=== PATIENT | male | born 1965 | race Caucasian/White ===

== ENCOUNTER 2017-07-26 05:56 | Outpatient (CLI) | payer MEDICARE, MEDICAID ==
[~2017-07-26] VITALS: Ht 193 cm; Wt 68.0 kg
[~2017-07-26 05:56] MED LIST: ALBU2.5V4 IH; BUDE10.22 IH; CEFU500T63 PO; LEVO750T9 PO; PRD20T PO
[2017-07-26] MEDS ORDERED: ALB0.5V IH (11:15)
== END 2017-07-26 11:56 ==
LOC: PREOP 05:56
PROVIDERS: ATTEND Internal Medicine Critical Care Medicine
DX: Z01.818 Encounter for other preprocedural examination (principal); R91.8 Other nonspecific abnormal finding of lung field; R59.9 Enlarged lymph nodes, unspecified

== ENCOUNTER 2017-07-27 07:17 | Day surgery (SDC) | payer MEDICARE, MEDICAID ==
[~2017-07-27] VITALS: Ht 193 cm; Wt 68.0 kg
[~2017-07-27 07:17] MED LIST changes: +ALB0.5V IH
[2017-07-27] MEDS ORDERED: LIDOCAINE PF 1% 2 ML AMP INJ ONE (07:18)
[2017-07-27] MEDS ORDERED: LIDOCAINE 4% INJ (XYLOCAINE) 5ML AMP INJ ONE (07:18)
[2017-07-27] MEDS ORDERED: LACTATED RINGERS 1,000 ML IV STA (07:18)
[2017-07-27] MEDS ORDERED: PROPOFOL INJECTION 50 ML IV ONE (07:30)
[2017-07-27] MEDS ORDERED: LIDOCAINE JELLY 2% (XYLOCAINE) 5 ML TUBE MM PRN (07:30)
[2017-07-27] MEDS ORDERED: fentaNYL INJECTION 100 MCG/2 ML AMP ONE (07:30)
[2017-07-27] MEDS ORDERED: MIDAZOLAM 2 MG/2 ML (VERSED) VIAL ONE (07:31)
[2017-07-27] MEDS ORDERED: ONDANSETRON 4 MG/2 ML (SDV) Z0FRAN ONE (07:31)
[2017-07-27] MEDS ORDERED: SUCCINYLCHOLINE INJ 100 MG/5 ML SYR ONE (07:31)
[2017-07-27] MEDS ORDERED: DEXAMETHASONE 10 MG/ML (DECADRON) 1 ML VIAL ONE (07:31)
[2017-07-27] MEDS ORDERED: LIDOCAINE PF 2% 5 ML (XYLOCAINE) VIAL ONE (07:32)
[2017-07-27 07:35] VITALS: BP 109/86
--- NOTE | 2017-07-27 07:47 | Progress Note-Pre Operative ---
Pre-Operative Progress Note H&P Reviewed The H&P was reviewed, patient examined and no changes noted. Date Seen by Provider: Jul 27, 2017 Time Seen by Provider: 07:46 Date H&P Reviewed: Jul 27, 2017 Time H&P Reviewed: 07:46 Pre-Operative Diagnosis: KAREN Simmons DO Jul 27, 2017 07:47
[2017-07-27] MEDS ORDERED: SEVOFLURANE (ULTANE) 15 ML INHAL SOLN ONE (08:32)
[2017-07-27 09:10] VITALS: BP 109/86
[2017-07-27 09:30] VITALS: BP 102/70
--- NOTE | 2017-07-27 09:40 | Diagnostic Imaging Report ---
INDICATION: Post bronchoscopy assessment Portable upright AP view of the chest is obtained with comparison made to study of 07/15/2017. Heart size and pulmonary vascularity are within normal limits. 3.5 cm nodule in the upper lobe of the right lung is again demonstrated with smaller adjacent nodule more superiorly in the right upper lobe. There is increased density in the right parahilar region with increasing paramediastinal density in both lungs which may be due to atelectasis or pneumonitis. There is no evidence of pneumothorax. No significant pleural fluid is seen. IMPRESSION: Right upper lobe pulmonary nodules are compatible with metastatic disease with possible adenopathy in the abbi and mediastinum. Increasing density in the medial upper lobes may be due to postobstructive atelectasis and/or pneumonitis. Dictated by: Dictated on workstation # [id number]
[2017-07-27 09:50] VITALS: BP 98/69
[2017-07-27 10:00] VITALS: BP 98/69
--- NOTE | 2017-08-17 08:42 | Pulmonary Procedures ---
Pulmonary Procedures Date of Procedure Date of Service: Aug 17, 2017 Bronch Bronchoscopy with EBUS with bx of station 10R lymph nodes Preop DX: mediastinal lymphadenopathy lung mass PostOP DX: same and RUL endobronchial mass Complications: None Pt was sedated per anesthesia. Bronchoscopy was advanced through the ED tube and an anatomical undertaken down to the segmental bronchi bilaterally. right upper lobe endobronchial lesions noted. EBUS was then advanced through ET tube and the mediastinum was US. Station 10R lymph nodes were sampled via needle bx under US guidance. Pt tolerated procedure well. No complications noted. KAREN DUQUE DO Aug 17, 2017 08:42
== END 2017-07-27 10:00 | disposition home or self-care (01) ==
LOC: ENDO 07:17
PROVIDERS: ATTEND Internal Medicine Critical Care Medicine
DX: C34.11 Malignant neoplasm of upper lobe, right bronchus or lung (principal); C77.1 Secondary and unspecified malignant neoplasm of intrathoracic lymph nodes; J44.9 Chronic obstructive pulmonary disease, unspecified; J45.909 Unspecified asthma, uncomplicated; R59.9 Enlarged lymph nodes, unspecified; F17.210 Nicotine dependence, cigarettes, uncomplicated; Z79.52 Long term (current) use of systemic steroids; Z79.899 Other long term (current) drug therapy
CPT/HCPCS: 71010; 87070; 87101; 87116; 87205; 88112; 88305; 88312; 88341; 88342; 88344; 94640

== ENCOUNTER → 2017-08-25 | Outpatient (CLI) | payer MEDICARE, MEDICAID ==
[~2017-08-25] MED LIST changes: +IOHEXOL 350 MG/ML 100 ML (OMNIPAQUE 350) VIAL IV ONE; +NS 100 ML (IVPB) BAG IV ONE
[2017-08-25 11:53] LABS: BLOOD UREA NITROGEN 12 MG/DL (7-18); BUN/CREATININE RATIO 16; CREATININE SERUM 0.73 MG/DL (0.60-1.30); GFR ESTIMATED > 60
--- NOTE | 2017-08-25 12:32 | Diagnostic Imaging Report ---
INDICATION: Lung cancer. COPD. COMPARISON: Chest radiograph dated 07/27/2017. FINDINGS: Frontal and lateral radiographic views of the chest were obtained. Again identified is masslike opacity in the lateral margins of the right upper lobe. Also identified is a 4.1 cm paratracheal mass in the right suprahilar region. There is increased consolidative airspace disease of the right upper lobe. Left lung is relatively clear. There is no large effusion or pneumothorax. Cardiac silhouette and pulmonary vasculature are within normal limits. IMPRESSION: 1. Increasing airspace disease within the right upper lung. Findings could be on the basis of postobstructive atelectasis related to right suprahilar obstructive lesion. Interval progression of metastatic disease or superimposed pneumonia, however, cannot be entirely excluded. 2. Redemonstration of patient's known right upper lobe malignancy. Dictated by: Dictated on workstation # [id number]
--- NOTE | 2017-08-25 13:23 | Diagnostic Imaging Report ---
PROCEDURE: CT head with and without contrast. TECHNIQUE: Multiple contiguous axial images were obtained through the brain before and after the administration of intravenous contrast. INDICATION: Lung cancer. Recent head injury. FINDINGS: The unenhanced phase demonstrates no intracranial hemorrhage. Post contrast administration images demonstrate a peripherally enhancing mass measuring 1.4 x 1 x 1.4 cm seen in the lateral aspect of the right cerebellar hemisphere. No significant surrounding vasogenic edema is noted. This is concerning for metastatic disease. No other brain mass is identified. The sigala-white matter differentiation is preserved. No hydrocephalus. No extra-axial fluid collection is seen. The calvarium and the orbits appear unremarkable. There is opacification of the visualized portion of the left maxillary sinus with aerated component seen only anteriorly. Bone thickening around it is in favor of chronic sinusitis. IMPRESSION: A 1.4 cm peripherally enhancing mass is seen in the lateral aspect of the right cerebellar hemisphere concerning for metastasis. Further evaluation with MRI with and without contrast is suggested for better evaluation. Ms. Miracle Ashley, the nurse practitioner taking care of the patient was called and informed of the findings at time of dictation. Report faxed to Miracle Ashley at 1:25 p.m. 08/25/2017/cb Dictated by: Dictated on workstation # [id number]
--- NOTE | 2017-08-25 14:07 | Diagnostic Imaging Report ---
PROCEDURE: CT chest, abdomen, and pelvis with and without contrast. TECHNIQUE: Precontrast images were obtained of the chest, abdomen, and pelvis. Multiple contiguous axial images were obtained through the chest, abdomen, and pelvis after administration of intravenous contrast. INDICATION: Lung cancer. Patients feet cold and is shaky. 100 mL of Omnipaque 350 is administered intravenously. Findings: CT CHEST: There is development of large area of consolidation in the right upper lobe measuring 7.3 x 8.5 cm abutting previously seen right suprahilar mass inseparable from the right paratracheal mediastinal lymph node station. This is now associated with significant heterogeneously enhancing area of consolidation in the right upper lobe with a large cavity containing debris measuring 7 x 4.6 x 6 cm in the right lung apex. Previously seen mass in the lateral aspect of the right upper lobe measuring 4.1 CM at this time is larger compared to 3.4 CM previously. There is also patchy areas of consolidation in the lower aspect of the right upper lobe just above the minor fissure not seen previously. There is encasement of the right upper lobe bronchus severely narrowing its lumen. There is also moderate compression of the superior vena cava. There is encasement with near complete occlusion of the right upper lobe pulmonary artery. The left lung demonstrate no significant consolidation or mass. Calcified granuloma in the left upper lobe seen. Background the emphysema changes are noted. In addition to the right paratracheal and perihilar masses, there is a 1.4 cm mildly enlarged infracarinal lymph node seen. No left hilar lymphadenopathy. No axillary lymphadenopathy. No pleural or pericardial effusion. The osseous structures demonstrate S-shaped scoliosis of the thoracolumbar spine. CT abdomen and pelvis: The liver, the gallbladder, the pancreas appear unremarkable. The adrenal glands demonstrate nonspecific hypodense nodules measuring 1.1 on the right side and 1.1 on the left. There is a heterogenously enhancing mass in the spleen superior aspect measuring approximately 3.7 CM in size, similar to the prior exam. This is likely an atypical hemangioma rather than metastatic related. The kidneys have symmetric enhancement and contrast excretion with no hydronephrosis. The unenhanced phase demonstrates no stones. There is no bowel obstruction. The abdominal aorta is normal in caliber. No paraaortic significantly enlarged lymph node is seen. S-shaped scoliosis in the thoracolumbar spine is noted. There is fusion of the SI joints with no destructive osseous mass seen. IMPRESSION: CT chest: There is significant progression of a large right upper lobe masses with associated cavity seen in the right lung apex. This could be related to tumor necrosis or superimposed infection including fungal or atypical infection. CT abdomen and pelvis: Nonspecific bilateral adrenal nodules and splenic mass. Metastasis is not entirely excluded although these could represent adrenal adenomas and an atypical hemangioma in the spleen. Dictated by: Dictated on workstation # [id number]
== END ==
LOC: RAD 11:05
PROVIDERS: ATTEND Nurse Practitioner Family
DX: C34.11 Malignant neoplasm of upper lobe, right bronchus or lung (principal); E27.8 Other specified disorders of adrenal gland; G93.89 Other specified disorders of brain; J44.9 Chronic obstructive pulmonary disease, unspecified; R16.1 Splenomegaly, not elsewhere classified
CPT/HCPCS: 36415; 70470; 71020; 71270; 74178; 82565; 84520

== ENCOUNTER 2017-08-26 09:08 | Outpatient (RCR) | payer MEDICARE, MEDICAID ==
[~2017-08-26] VITALS: Ht 189.2 cm; Wt 65.3 kg
[~2017-08-26 09:08] MED LIST changes: -IOHEXOL 350 MG/ML 100 ML (OMNIPAQUE 350) VIAL IV ONE; -NS 100 ML (IVPB) BAG IV ONE
[2017-08-26] MEDS ORDERED: NORMAL SALINE IV SCH (14:45)
[2017-08-26] MEDS ORDERED: D5W IV SCH (14:45)
[2017-08-26] MEDS ORDERED: NS IV 1000 ML (CANCER CTR) IV SCH (14:45)
[2017-08-26] MEDS ORDERED: CARBOPLATIN IV SCH (14:45)
[2017-08-26] MEDS ORDERED: ETOPOSIDE IV SCH (14:45)
[2017-08-26] MEDS ORDERED: ONDANSETRON MDV (CANCER CENTER 16 MG, DEXAMETHASONE PF INJ (CANCER C 10 MG in D5W 50 ML... IV SCH (14:45)
[2017-08-26] MEDS ORDERED: PALONOSETRON HCL 0.25 MG, DEXAMETHASONE PF INJ (CANCER C 10 MG in D5W 50 ML IV(CANCER C... IV PRN (14:45)
[2017-08-29] MEDS ORDERED: ACHD5005 PO (20:36)
[2017-08-29] MEDS ORDERED: ALBU2.5V4 IH (20:36)
[2017-08-29] MEDS ORDERED: AMOX1TAB12 PO (20:36)
== END 2017-11-24 | disposition home or self-care (01) ==
LOC: ONC 09:08
PROVIDERS: ATTEND Internal Medicine Hematology & Oncology
DX: C34.11 Malignant neoplasm of upper lobe, right bronchus or lung (principal); C79.31 Secondary malignant neoplasm of brain; J44.9 Chronic obstructive pulmonary disease, unspecified; J45.909 Unspecified asthma, uncomplicated; I10 Essential (primary) hypertension; R07.9 Chest pain, unspecified; Z79.899 Other long term (current) drug therapy

== ENCOUNTER 2017-08-29 19:39 | Inpatient (IN) | payer MEDICARE, MEDICAID ==
[~2017-08-29] VITALS: Ht 193 cm; Wt 68.3 kg
[2017-08-29] MEDS ORDERED: RT-ALBUTEROL/IPRATROPIUM 3 ML (DUONEB) VIAL ONE (19:44)
[2017-08-29] MEDS ORDERED: morphine INJ 10 MG/ML 1ML (SYR OR VIAL) ONE (19:45)
[2017-08-29] MEDS ORDERED: morphine INJ 10 MG/ML 1ML (SYR OR VIAL) IVP ONE (19:45)
--- NOTE | 2017-08-29 19:48 | ED Cough/URI ---
General Chief Complaint: Respiratory Problems Stated Complaint: RESP DISTRESS Source: patient Exam Limitations: no limitations History of Present Illness Time seen by provider: 19:46 Initial Comments To ER per EMS from home with reports of respiratory difficulties. Patient was diagnosed about 3 weeks ago with small cell lung cancer metastatic kidney, spleen, brain. He has met with Dr. Maldonado from oncology and tentatively plans to have chemotherapy started this coming week. Patient has not made any advanced directives in regards to how to proceed should he need ventilatory support. Timing/Duration: just prior to arrival Severity/Quality: moderate Associated Symptoms: cough, shortness of breath Allergies and Home Medications Allergies Coded Allergies: codeine (Verified Allergy, Unknown, 08/26/17) diphenhydramine (Verified Allergy, Unknown, 08/26/17) Uncoded Allergies: WASP (Allergy, Unknown, 08/26/17) Home Medications Albuterol Sulfate 2.5 Mg/3 Ml Vial.neb, (Reported) Amoxicillin/Potassium Clav 1 Each Tablet, (Reported) Hydrocodone/Acetaminophen 1 Each Tablet, (Reported) Constitutional: see HPI EENTM: see HPI Respiratory: see HPI, cough Cardiovascular: no symptoms reported Genitourinary: no symptoms reported Musculoskeletal: no symptoms reported Skin: no symptoms reported Psychiatric/Neurological: No Symptoms Reported Hematologic/Lymphatic: No Symptoms Reported Past Qczcsmy-Eygrrf-Qhnhtv Hx Patient Social History Alcohol Use: Past History Number of Drinks Today: AA Alcohol Beverage of Choice: Beer Recreational Drug Use: No Smoking Status: Current Everyday Smoker Type Used: Cigarettes Recent Hopitalizations: No Immunizations Up To Date Tetanus Booster (TDap): Unknown Seasonal Allergies Seasonal Allergies: No Surgeries History of Surgeries: Yes (Hernia, Cornea transplant, Ankle sx) Surgeries: Eye Surgery, Orthopedic Respiratory History of Respiratory Disorde: Yes Respiratory Disorders: Asthma, Chronic Bronchitis, COPD Currently Using CPAP: No Currently Using BIPAP: No Cardiovascular History of Cardiac Disorders: No Neurological History of Neurological Disord: No Reproductive System Hx Reproductive Disorders: No Sexually Transmitted Disease: No HIV/AIDS: No Genitourinary History of Genitourinary Disor: No Gastrointestinal History of Gastrointestinal Di: No Musculoskeletal History of Musculoskeletal Dis: No Endocrine History of Endocrine Disorders: No HEENT History of HEENT Disorders: No Loss of Vision: Denies Hearing Impairment: Denies Cancer History of Cancer: No Psychosocial History of Psychiatric Problem: Yes Behavioral Health Disorders: Sleep Difficulties Integumentary History of Skin or Integumenta: No Blood Transfusions History of Blood Disorders: No Physical Exam Vital Signs Vital Sign - Last 12Hours 08/29/17 19:44 Temp 100.1 Pulse 125 Resp 33 B/P (MAP) 113/56 (75) Pulse Ox 98 O2 Delivery Room Air Capillary Refill : General Appearance: WD/WN, moderate distress, other (tachypnea with a rate of 30, heart rate 123, very anxious appearing) Eyes: Bilateral Eye Normal Inspection, Bilateral Eye PERRL, Bilateral Eye EOMI HEENT: PERRL/EOMI, normal ENT inspection Neck: non-tender, full range of motion Respiratory: no respiratory distress, no accessory muscle use, decreased breath sounds, rhonchi Cardiovascular: no murmur, tachycardia Gastrointestinal: normal bowel sounds, non tender, soft Extremities: normal range of motion, non-tender Neurologic/Psychiatric: alert, normal mood/affect, oriented x 3 Skin: normal color, warm/dry Focused Exam Evaluation Lactate Level Laboratory Tests 08/29/17 19:44: Lactic Acid Level 1.68 Lactic Acid Level Laboratory Tests Test 08/29/17 19:44 Lactic Acid Level 1.68 MMOL/L (0.50-2.00) Progress/Results/Core Measures Suspected Sepsis SIRS Temperature: Pulse: Respiratory Rate: Laboratory Tests 08/29/17 19:44: White Blood Count 30.1*H Blood Pressure / Mean: Laboratory Tests 08/29/17 19:44: Lactic Acid Level 1.68 Laboratory Tests 08/29/17 19:44: Creatinine 0.80, Platelet Count 631H, Total Bilirubin 0.7 Results/Orders Lab Results Laboratory Tests Test 08/29/17 19:44 08/29/17 19:59 Range/Units White Blood Count 30.1 *H 4.3-11.0 10^3/uL Red Blood Count 3.54 L 4.35-5.85 10^6/uL Hemoglobin 10.7 L 13.3-17.7 G/DL Hematocrit 31 L 40-54 % Mean Corpuscular Volume 87 80-99 FL Mean Corpuscular Hemoglobin 30 25-34 PG Mean Corpuscular Hemoglobin Concent 35 32-36 G/DL Red Cell Distribution Width 13.9 10.0-14.5 % Platelet Count 631 H 130-400 10^3/uL Mean Platelet Volume 9.8 7.4-10.4 FL Neutrophils (%) (Auto) 83 H 42-75 % Lymphocytes (%) (Auto) 5 L 12-44 % Monocytes (%) (Auto) 12 0-12 % Eosinophils (%) (Auto) 0 0-10 % Basophils (%) (Auto) 0 0-10 % Neutrophils # (Auto) 25.0 H 1.8-7.8 X 10^3 Lymphocytes # (Auto) 1.6 1.0-4.0 X 10^3 Monocytes # (Auto) 3.5 H 0.0-1.0 X 10^3 Eosinophils # (Auto) 0.0 0.0-0.3 10^3/uL Basophils # (Auto) 0.0 0.0-0.1 10^3/uL Sodium Level 131 L 135-145 MMOL/L Potassium Level 4.3 3.6-5.0 MMOL/L Chloride Level 92 L 98-107 MMOL/L Carbon Dioxide Level 26 21-32 MMOL/L Anion Gap 13 5-14 MMOL/L Blood Urea Nitrogen 6 L 7-18 MG/DL Creatinine 0.80 0.60-1.30 MG/DL Estimat Glomerular Filtration Rate > 60 BUN/Creatinine Ratio 8 Glucose Level 101 70-105 MG/DL Lactic Acid Level 1.68 0.50-2.00 MMOL/L Calcium Level 8.7 8.5-10.1 MG/DL Total Bilirubin 0.7 0.1-1.0 MG/DL Aspartate Amino Transf (AST/SGOT) 27 5-34 U/L Alanine Aminotransferase (ALT/SGPT) 21 0-55 U/L Alkaline Phosphatase 124 40-136 U/L Total Protein 7.2 6.4-8.2 GM/DL Albumin 2.8 L 3.2-4.5 GM/DL Blood Gas Puncture Site L RAD Blood Gas Patient Temperature 100.1 Arterial Blood pH 7.51 H 7.37-7.43 Arterial Blood Partial Pressure CO2 32 L 35-45 MMHG Arterial Blood Partial Pressure O2 151 H 79-93 MMHG Arterial Blood HCO3 26 23-27 MMOL/L Arterial Blood Total CO2 26.5 21.0-31.0 MMOL/L Arterial Blood Oxygen Saturation 100 94-100 % Arterial Blood Base Excess 2.8 H -2.5-2.5 MMOL/L Mathew Test YES-POS Blood Gas Ventilator Setting NO Blood Gas Inspired Oxygen 7 L My Orders Orders - MARIANELA CHAVEZ APRN Cbc With Automated Diff (08/29/17 19:45) Comprehensive Metabolic Panel (08/29/17 19:45) Ua Culture If Indicated (08/29/17 19:45) Saline Lock/Iv-Start (08/29/17 19:45) Chest 1 View, Ap/Pa Only (08/29/17 19:45) Blood Culture (08/29/17 19:45) Lactic Acid Analyzer (08/29/17 19:45) Morphine Injection (Morphine Injection (08/29/17 19:45) Arterial Blood Gas (08/29/17 19:56) Manual Differential (08/29/17 19:44) Piperacillin Sodium/Tazobactam (Zosyn Vi (08/29/17 20:15) Medications Given in ED Current Medications Medications Dose Ordered Sig/Bro Route Start Time Stop Time Status Last Admin Dose Admin Morphine Sulfate 4 mg ONCE ONCE IVP 08/29/17 19:45 08/29/17 19:47 DC 08/29/17 19:49 4 MG Piperacillin Sod/ Tazobactam Sod 4.5 gm/Sodium Chloride 100 ml @ 200 mls/hr ONCE ONCE IV 08/29/17 20:15 08/29/17 20:44 DC 08/29/17 20:36 200 MLS/HR Vital Signs/I&O Vital Sign - Last 12Hours 08/29/17 19:44 Temp 100.1 Pulse 125 Resp 33 B/P (MAP) 113/56 (75) Pulse Ox 98 O2 Delivery Room Air Capillary Refill : Diagnostic Imaging Diagonstic Imaging: Xray Plain Films/CT/US/NM/MRI: chest Comments NAME: CHENCHO GARCIA [facility] REC#: [id number] PT STATUS: REG ER : 1965 PHYSICIAN: MARIANELA CHAVEZ APRN ADMIT DATE: 08/29/17/ER Draft Date of Exam:08/29/17 CHEST 1 VIEW, AP/PA ONLY INDICATION: Shortness of breath COMPARISON: 08/25/2017 FINDINGS: Single view of the chest demonstrates increasing opacification of the right upper lobe and right hilum. Left lung is stable and clear. The heart is normal. There is no pneumothorax or effusion. IMPRESSION: Increasing infiltrate in the right upper lobe and right hilum. Dictated on workstation # [id number] Dict: 08/29/172002 Trans: 08/29/172006 KIET [id number] Interpreted by: JOEY BARRON Electronically signed by: Departure Communication (Admissions) Time/Spoke to Admitting Phy: 20:52 Communication I spoke with Dr. Agustin Jerome. She agrees to admit, consult Dr. Stafford, consult Dr. Maldonado Family Conversation 2032- after 4 mg of IV morphine the respiratory rate has slowed to about 24. Maintains a persistent cough but his overall dyspnea is much improved and he is able to speak currently. I did discuss with him whether or not he would want to be intubated should the need arise at this point he states yes he would want that. Progress Notes NAME: CHENCHO GARCIA JR [facility] REC#: [id number] PHYSICIAN: MIRACLE ASHLEY APRN CC: MIRACLE ASHLEY APRN; EDGARD LEE MD Page 2 of 2 RADIOLOGY REPORT VIA [facility], [facility]. [place], [place] CC: MIRACLE ASHLEY APRN; EDGARD LEE MD Page 1 of 2 RADIOLOGY REPORT IMPRESSION: A 1.4 cm peripherally enhancing mass is seen in the lateral aspect of the right cerebellar hemisphere concerning for metastasis. Further evaluation with MRI with and without contrast is suggested for better evaluation. Ms. Miracle Ashley, the nurse practitioner taking care of the patient was called and informed of the findings at time of dictation. Report faxed to Miracle Ashley at 1:25 p.m. 08/25/2017/cb Dictated by: Dictated on workstation # [id number] Dict: 08/25/17 1258 Trans: 08/25/17 1525 Interpreted by: EDGARD LEE MD Electronically signed by: EDGARD LEE MD 08/25/17 1525 NAME: CHENCHO GARCIA JR [facility] REC#: [id number] PT STATUS: REG CLI : 1965 PHYSICIAN: MIRACLE ASHLEY APRN ADMIT DATE: 08/25/17/RAD Signed Date of Exam: 08/25/17 CT HEAD W WO PROCEDURE: CT head with and without contrast. TECHNIQUE: Multiple contiguous axial images were obtained through the brain before and after the administration of intravenous contrast. INDICATION: Lung cancer. Recent head injury. FINDINGS: The unenhanced phase demonstrates no intracranial hemorrhage. Post contrast administration images demonstrate a peripherally enhancing mass measuring 1.4 x 1 x 1.4 cm seen in the lateral aspect of the right cerebellar hemisphere. No significant surrounding vasogenic edema is noted. This is concerning for metastatic disease. No other brain mass is identified. The sigala-white matter differentiation is preserved. No hydrocephalus. No extra-axial fluid collection is seen. The calvarium and the orbits appear unremarkable. There is opacification of the visualized portion of the left maxillary sinus with aerated component seen only anteriorly. Bone thickening around it is in favor of chronic sinusitis. IMPRESSION: A 1.4 cm peripherally enhancing mass is seen in the lateral aspect of the right cerebellar hemisphere concerning for metastasis. Further evaluation with MRI with and without contrast is suggested for better evaluation. Ms. Miracle Ashley, the nurse practitioner taking care of the patient was called and informed of the findings at time of dictation. Report faxed to Miracle Ashley at 1:25 p.m. 08/25/2017/cb Impression Impression: Primary Impression: Metastatic primary lung cancer Additional Impressions: Metastatic cancer to brain Respiratory distress Sepsis Pneumonia Disposition: ADMITTED INPATIENT Condition: Critical Admissions Decision to Admit Reason: Admit from ER (General) Decision to Admit/Date: Aug 29, 2017 Time/Decision to Admit Time: 20:33 Departure-Patient Inst. Referrals: AGUSTIN JEROME MD (PCP/Family) Primary Care Physician MARIANELA CHAVEZ APRN Aug 29, 2017 19:48
[2017-08-29 19:53] LABS: BASOPHILS % (AUTO) 0 % (0-10); EOSINOPHILS % (AUTO) 0 % (0-10); LYMPHOCYTES # (AUTO) 1.6 X 10^3 (1.0-4.0); LYMPHOCYTES % (AUTO) 5 % (12-44); MEAN CORPUSCULAR HEMOGLOBIN 30 PG (25-34); MEAN CORPUSCULAR HGB CONC 35 G/DL (32-36); MEAN CORPUSCULAR VOLUME 87 FL (80-99); MEAN PLATELET VOLUME 9.8 FL (7.4-10.4); MONOCYTES # (AUTO) 3.5 X 10^3 (0.0-1.0); MONOCYTES % (AUTO) 12 % (0-12); NEUTROPHILS % (AUTO) 83 % (42-75); PLATELET COUNT 631 10^3/uL (130-400); RED BLOOD COUNT 3.54 10^6/uL (4.35-5.85); RED CELL DISTRIBUTION WIDTH 13.9 % (10.0-14.5)
[2017-08-29 20:01] LABS: WHITE BLOOD COUNT 30.1 10^3/uL (4.3-11.0)
--- NOTE | 2017-08-29 20:08 | Diagnostic Imaging Report ---
INDICATION: Shortness of breath COMPARISON: 08/25/2017 FINDINGS: Single view of the chest demonstrates increasing opacification of the right upper lobe and right hilum. Left lung is stable and clear. The heart is normal. There is no pneumothorax or effusion. IMPRESSION: Increasing infiltrate in the right upper lobe and right hilum. Dictated by: Dictated on workstation # [id number]
[2017-08-29] MEDS ORDERED: PIPERACILLIN SODIUM/TAZOBACTAM 4.5 GM in NS (IVPB) 100 ML IV ONE (20:15)
[2017-08-29 20:18] LABS: ALANINE AMINOTRANSFERASE 21 U/L (0-55); ALBUMIN 2.8 GM/DL (3.2-4.5); ANION GAP 13 MMOL/L (5-14); ASPARTATE AMINO TRANSFERASE 27 U/L (5-34); BILIRUBIN,TOTAL 0.7 MG/DL (0.1-1.0); BLOOD UREA NITROGEN 6 MG/DL (7-18); BUN/CREATININE RATIO 8; CALCIUM 8.7 MG/DL (8.5-10.1); CARBON DIOXIDE 26 MMOL/L (21-32); CHLORIDE 92 MMOL/L (98-107); GFR ESTIMATED > 60; GLUCOSE 101 MG/DL (70-105); POTASSIUM 4.3 MMOL/L (3.6-5.0); SODIUM 131 MMOL/L (135-145); TOTAL PROTEIN 7.2 GM/DL (6.4-8.2)
[2017-08-29 20:24] LABS: ABG HCO3 26 MMOL/L (23-27); ABG PCO2 32 MMHG (35-45); ABG PH 7.51 (7.37-7.43); ABG PO2 151 MMHG (79-93)
[2017-08-29 20:25] LABS: ABG BASE EXCESS 2.8 MMOL/L (-2.5-2.5); ABG OXYGEN SATURATION 100 % (94-100); ABG TCO2 26.5 MMOL/L (21.0-31.0); ALLENS TEST YES-POS
[2017-08-29 20:26] LABS: PATIENT TEMP 100.1
[2017-08-29] MEDS ORDERED: AMOX1TAB12 PO (20:36)
[2017-08-29] MEDS ORDERED: ALBU2.5V4 IH (20:36)
[2017-08-29] MEDS ORDERED: ACHD5005 PO (20:36)
[2017-08-29] MEDS ORDERED: NS IV 1000 ML 1,000 ML IV SCH ×2 (20:45)
[2017-08-29 20:52] LABS: BAND NEUTROPHILS 5 %; BASOPHILS % (MANUAL) 0 %; EOSINOPHILS % (MANUAL) 0 %; HYPOCHROMASIA SLIGHT; LYMPHOCYTES % (MANUAL) 6 %; NEUTROPHILS % (MANUAL) 78 %; REACTIVE LYMPHOCYTES 3 %
[2017-08-29 20:53] LABS: POIKILOCYTOSIS SLIGHT; ROULEAUX SLIGHT; STOMATOCYTES SLIGHT
[2017-08-29 21:05] LABS: KETONES,URINE NEGATIVE (NEGATIVE); LEUKOCYTE ESTERASE ,URINE 1+ (NEGATIVE); NITRITE,URINE NEGATIVE (NEGATIVE); PH,URINE 6 (5-9); PROTEIN,URINE 2+ (NEGATIVE); UROBILINOGEN,URINE 12 MG/DL (NORMAL)
[2017-08-29] MEDS ORDERED: ACETAMINOPHEN 325 MG TABLET/CAPLET (TYLENOL) PO PRN (21:15)
[2017-08-29] MEDS ORDERED: ONDANSETRON 4 MG/2 ML (SDV) Z0FRAN IV PRN (21:15)
[2017-08-29] MEDS ORDERED: CATHETER FLUSH 10 ML SYR IV PRN (21:15)
[2017-08-29 21:31] VITALS: BP 109/65
[2017-08-29] MEDS: morphine INJ 4 MG/ML 1 ML (VIAL/SYRINGE) IVP PRN (21:35)
[2017-08-29 21:45] LABS: BILIRUBIN,URINE 1+ (NEGATIVE); HYALINE CASTS, URINE 0-2 /LPF; SQUAMOUS EPITHELIAL CELL,UR RARE /HPF; WBC,URINE 0-2 /HPF
[2017-08-29] MEDS: NS IV 1000 ML 1,000 ML IV SCH (21:52)
[2017-08-29 22:00] VITALS: BP 111/70
[2017-08-29] MEDS: CATHETER FLUSH 10 ML SYR IV SCH (22:51)
[2017-08-29 23:00] VITALS: BP 100/66
[2017-08-29 23:55] VITALS: BP 113/56
[2017-08-30] VITALS (13 sets, daily range): BP systolic 84–125; BP diastolic 51–70
[2017-08-30] MEDS ORDERED: RT-ALBUTEROL/IPRATROPIUM 3 ML (DUONEB) VIAL INH PRN (00:30)
[2017-08-30] MEDS: morphine INJ 4 MG/ML 1 ML (VIAL/SYRINGE) IVP PRN ×5 (00:40→23:20)
[2017-08-30] MEDS: PIPERACILLIN/TAZOBACTAM 4.5 GM/NS100 ML IVPB IV SCH ×4 (02:45→11:49)
[2017-08-30] MEDS: RT-ALBUTEROL/IPRATROPIUM 3 ML (DUONEB) VIAL INH SCH ×6 (03:11→21:52)
[2017-08-30] MEDS: NS IV 1000 ML 1,000 ML IV SCH ×3 (04:42→15:08)
[2017-08-30 05:08] LABS: BASOPHILS # (AUTO) 0.1 10^3/uL (0.0-0.1); BASOPHILS % (AUTO) 0 % (0-10); EOSINOPHILS % (AUTO) 0 % (0-10); LYMPHOCYTES # (AUTO) 1.6 X 10^3 (1.0-4.0); LYMPHOCYTES % (AUTO) 6 % (12-44); MEAN CORPUSCULAR HEMOGLOBIN 30 PG (25-34); MEAN CORPUSCULAR HGB CONC 34 G/DL (32-36); MEAN CORPUSCULAR VOLUME 88 FL (80-99); MEAN PLATELET VOLUME 9.6 FL (7.4-10.4); MONOCYTES # (AUTO) 2.5 X 10^3 (0.0-1.0); MONOCYTES % (AUTO) 9 % (0-12); NEUTROPHILS # (AUTO) 24.9 X 10^3 (1.8-7.8); NEUTROPHILS % (AUTO) 86 % (42-75); PLATELET COUNT 565 10^3/uL (130-400); RED BLOOD COUNT 3.38 10^6/uL (4.35-5.85); WHITE BLOOD COUNT 29.1 10^3/uL (4.3-11.0)
[2017-08-30 05:28] LABS: ANION GAP 15 MMOL/L (5-14); BLOOD UREA NITROGEN 7 MG/DL (7-18); BUN/CREATININE RATIO 10; CALCIUM 8.2 MG/DL (8.5-10.1); CARBON DIOXIDE 24 MMOL/L (21-32); CHLORIDE 100 MMOL/L (98-107); CREATININE SERUM 0.71 MG/DL (0.60-1.30); GFR ESTIMATED > 60; GLUCOSE 112 MG/DL (70-105); MAGNESIUM 1.7 MG/DL (1.8-2.4); PHOSPHORUS 3.1 MG/DL (2.3-4.7); POTASSIUM 3.7 MMOL/L (3.6-5.0); SODIUM 139 MMOL/L (135-145)
[2017-08-30] MEDS ORDERED: KCL 20 MEQ TAB (K-DUR) PO SCH (06:00)
[2017-08-30] MEDS: CATHETER FLUSH 10 ML SYR IV SCH ×3 (06:00→20:52)
[2017-08-30] MEDS ORDERED: MAGNESIUM 1 GM/100 ML IVPB 100 ML IV SCH (06:00)
[2017-08-30] MEDS ORDERED: POTASSIUM CL 10MEQ/50ML IVPB 50 ML IV SCH (06:00)
[2017-08-30] MEDS: MAGNESIUM 1 GM/100 ML IVPB 100 ML IV SCH ×2 (06:08→07:42)
--- NOTE | 2017-08-30 06:50 | Pulmonary Consultation ---
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 He has an appt with Dr. Maldonado this week as out patient to start chemotherapy. Pt presented to ED secondary to worsening SOB. Upon ED admission UDS was positive for Marijuana, and Methamphetamines. Pt denies productive cough. He has had a fever while in the ICU. PT does feel better compared with admission. He states he has had prior episodes like this however not as severe. I am consulted for pulmonary management. Allergies and Home Medications Allergies Coded Allergies: codeine (Verified Allergy, Unknown, 08/26/17) diphenhydramine (Verified Allergy, Unknown, 08/26/17) Uncoded Allergies: WASP (Allergy, Unknown, 08/26/17) Home Medications Albuterol Sulfate 2.5 Mg/3 Ml Vial.neb, (Reported) Amoxicillin/Potassium Clav 1 Each Tablet, (Reported) Hydrocodone/Acetaminophen 1 Each Tablet, (Reported) Past [id number]-Wdtfbg Hx Patient Social History Alcohol Use: Past History Number of Drinks Today: AA Alcohol Beverage of Choice: Beer Recreational Drug Use: No Smoking Status: Current Everyday Smoker Type Used: Cigarettes Recent Foreign Travel: No Contact w/Someone Who Travel: No Recent Infectious Disease Expo: No Recent Hopitalizations: No Physical Abuse: No Sexual Abuse: No Immunizations Up To Date Tetanus Booster (TDap): Unknown Seasonal Allergies Seasonal Allergies: No Surgeries History of Surgeries: Yes (Hernia, Cornea transplant, Ankle sx) Surgeries: Eye Surgery, Orthopedic Respiratory History of Respiratory Disorde: Yes Respiratory Disorders: Asthma, Chronic Bronchitis, COPD Currently Using CPAP: No Currently Using BIPAP: No Cardiovascular History of Cardiac Disorders: No Neurological History of Neurological Disord: No Reproductive System Hx Reproductive Disorders: No Sexually Transmitted Disease: No HIV/AIDS: No Genitourinary History of Genitourinary Disor: No Gastrointestinal History of Gastrointestinal Di: No Musculoskeletal History of Musculoskeletal Dis: No Endocrine History of Endocrine Disorders: No HEENT History of HEENT Disorders: No Loss of Vision: Denies Hearing Impairment: Denies Cancer History of Cancer: Yes Cancer: Lung Did You Recieve Any Treatments: No Psychosocial History of Psychiatric Problem: Yes Behavioral Health Disorders: Sleep Difficulties Suicide Risk Score: 0 Integumentary History of Skin or Integumenta: No Blood Transfusions History of Blood Disorders: No Family Medical History Family Medial History: Fibrocystic disease of breast 19 MOTHER (breast ca) Review of Systems Time Seen by Provider: 06:50 Constitutional: Fever, Chills, Sweats, Weakness, Malaise Eyes: No: Pain, Vision change, Conjunctivae inflammation, Eyelid inflammation, Other, Redness ENT: Nose congestion, No: Ear pain, Ear discharge, Nose pain, Nose discharge, Mouth pain, Mouth swelling, Throat pain, Throat swelling, Other Respiratory: Shortness of breath, SOB with excertion, Wheezing, Sputum Cardiovascular: Paroxysmal Noc. Dyspnea, Lt Headedness Gastrointestinal: Constipation Neurological: Weakness, Incoordination, Confusion Exam Exam Vital Signs Date Time Temp Pulse Resp B/P (MAP) Pulse Ox O2 Delivery O2 Flow Rate FiO2 08/30/17 06:00 84 25 95/60 (72) 98 Nasal Cannula 4.00 08/30/17 05:00 96 20 97/70 (79) 100 Nasal Cannula 4.00 08/30/17 04:00 97.7 Nasal Cannula 4.00 08/30/17 04:00 98 Nasal Cannula 4.00 08/30/17 04:00 98 20 96/63 (74) 100 Nasal Cannula 4.00 08/30/17 03:11 100 Nasal Cannula 4.50 08/30/17 03:00 87 18 84/51 (62) 100 Nasal Cannula 4.00 08/30/17 02:00 98 16 97/64 (75) 100 Nasal Cannula 4.00 08/30/17 01:00 92 22 102/59 (73) 98 Nasal Cannula 4.00 08/30/17 01:00 92 08/30/17 00:00 98 Nasal Cannula 4.00 08/30/17 00:00 106 22 97/58 (71) 98 Nasal Cannula 4.00 08/29/17 23:55 113 94 08/29/17 23:53 94 Nasal Cannula 4.50 08/29/17 23:30 99.2 08/29/17 23:11 116 08/29/17 23:00 106 10 100/66 (77) 100 Nasal Cannula 4.00 08/29/17 22:49 101.4 08/29/17 22:00 111 28 111/70 (84) 100 Nasal Cannula 4.00 08/29/17 21:31 98.9 114 28 109/65 (80) 99 Nasal Cannula 4.00 08/29/17 21:10 95 Nasal Cannula 4.00 08/29/17 20:54 94 Nasal Cannula 2.00 08/29/17 20:54 100.0 116 29 99 Nasal Cannula 3.00 08/29/17 20:52 94 Nasal Cannula 2.00 08/29/17 19:44 100.1 125 33 113/56 (75) 98 Room Air I & O 08/30/17 07:00 Intake Total 2465 ml Output Total 700 ml Balance 1765 ml General Appearance: Anxious, Cachetic, Mild Distress, Thin HEENT: PERRL/EOMI, Normal ENT Inspection Neck: Full Range of Motion, Normal Inspection, Non Tender, Supple Respiratory: Accessory Muscle Use, Decreased Breath Sounds Cardiovascular: Regular Rate, Rhythm, No Edema, No Murmur, Normal Peripheral Pulses Capillary Refill: Less Than 3 Seconds Gastrointestinal: normal bowel sounds, non tender, soft Neurologic/Psychiatric: Alert, Oriented x3 Skin: Normal Color, Warm/Dry Lymphatic: No Adenopathy Results Lab Laboratory Tests 08/29/17 19:44 08/30/17 04:50 Assessment/Plan Assessment/Plan Pneumonia with sepsis and respiratory distress -Continue Zosyn -Await fernandez cultures Recent Dx of Small Cell lung cancer with mets -Oncology is consulted COPDAE -Solumedrol 40 IV Q 12 -SVNs Hypomagnesium -replace Methamphetamine and marijuana use Tobacco dependance -education PT is doing better since admission will transfer to 4th floor. 255 Clinical Quality Measures DVT/VTE Risk/Contraindication: Risk Factor Score Per Nursin RFS Level Per Nursing on Admit: 4+=Very High KARNE DUQUE DO Aug 30, 2017 06:50
[2017-08-30] MEDS ORDERED: INFLUENZA TRIvalent 2017-2018 0.5 ML/45 MCG SYR IM ONE (07:30)
[2017-08-30] MEDS: methylPREDNISolone 40 MG/ML (Solu-MEDROL) VIAL IV SCH ×2 (07:42→20:52)
--- NOTE | 2017-08-30 09:31 | Diagnostic Imaging Report ---
INDICATION: Respiratory distress. TECHNIQUE: Single-view chest 4:37 AM. CORRELATION STUDY: 08/29/2017. FINDINGS: Rather significant opacification of the right upper lung and perihilar region persists, generally stable. Apical pleural effusion and/or thickening is present. Left lung slightly hyperinflated, remains relatively clear. Heart size stable. IMPRESSION: Rather pronounced opacification of a large portion of the right upper lobe and right hilar region concerning for a combination of underlying mass and consolidating pneumonia. Dictated by: Dictated on workstation # [id number]
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
--- NOTE | 2017-08-30 15:39 | Discharge Instructions ---
Discharge [facility] Discharge Medications New, Converted or Re-Newed RX: Other Discontinued Medications: Albuterol Sulfate (Albuterol Sulfate) 2.5 Mg/3 Ml Vial.neb 2.5 MG IH Q6H PRN for SHORTNESS OF BREATH Amoxicillin/Potassium Clav (Amox Tr-K Clv 875-125 mg Tab) 1 Each Tablet 1 TAB PO BID FILLED 08/25/17 #20 FOR A 10 DAY THERAPY Hydrocodone/Acetaminophen (Hydrocodon -Acetaminophen 5-325) 1 Each Tablet 1 TAB PO Q6H PRN for PAIN-MODERATE Patient Instructions Goal/Follow Up Appt: YOU WILL BE IN A MEDICAL FACILITY TO TAKE CARE OF YOUR NEEDS AND DO NOT REQUIRE A FOLLOW UP APPOINTMENT. Patient Instructions: PLEASE TAKE ALL MEDS PRESCRIBED BY THE HOSPICE PHYSICIAN. Return to The Hospital For: YOU WILL BE IN A MEDICAL FACILITY. FURTHER TRIPS TO HOSPITAL WILL BE AT THEIR DISCRETION AND RECOMMENDATIONS. Activity & Diet Discharge Diet: No Restrictions Activity as Tolerated: Yes Copy Copies To 1: AGUSTIN JEROME MD, JULIE A MD Aug 30, 2017 3:39 pm
[2017-08-30] MEDS ORDERED: NICOTINE 21 MG (NICODERM) PATCH TD NR (15:45)
[2017-08-30] MEDS ORDERED: BISACODYL 5 MG (DULCOLAX) TABLET PO PRN (15:45)
[2017-08-31] MEDS: RT-ALBUTEROL/IPRATROPIUM 3 ML (DUONEB) VIAL INH SCH ×3 (02:17→10:33)
[2017-08-31] MEDS: morphine INJ 4 MG/ML 1 ML (VIAL/SYRINGE) IVP PRN ×3 (03:12→12:19)
[2017-08-31 03:18] VITALS: BP 99/58
[2017-08-31] MEDS: CATHETER FLUSH 10 ML SYR IV SCH (06:26)
--- NOTE | 2017-08-31 06:47 | Pulmonary Progress Note ---
Subjective Time Seen by Provider: 06:47 Subjective/Events-last exam Pt is going to go on hospice. Exam Exam Vital Signs Date Time Temp Pulse Resp B/P (MAP) Pulse Ox O2 Delivery O2 Flow Rate FiO2 08/31/17 03:18 96.8 91 18 99/58 (72) 95 Room Air 08/31/17 02:18 98 Room Air 08/30/17 23:19 96.8 90 18 125/58 (80) 99 Room Air 08/30/17 21:55 99 Room Air 08/30/17 20:15 97.7 102 18 109/57 (74) 100 Room Air 08/30/17 20:15 100 Room Air 08/30/17 18:58 98 Room Air 08/30/17 16:00 96.2 95 20 101/56 (71) 96 Nasal Cannula 4.00 08/30/17 16:00 98 Nasal Cannula 4.00 08/30/17 14:46 93 Room Air 08/30/17 12:00 97.3 93 20 102/56 (71) 99 Nasal Cannula 4.00 08/30/17 12:00 98 Nasal Cannula 4.00 08/30/17 11:07 98 Nasal Cannula 4.00 08/30/17 08:00 99.0 105 28 114/63 (80) 100 Nasal Cannula 4.00 08/30/17 08:00 98 Nasal Cannula 4.00 08/30/17 07:32 97 Nasal Cannula 3.00 08/30/17 07:00 99.3 99 29 97/55 (69) 96 Nasal Cannula 4.00 I & O 08/31/17 07:00 Intake Total 3705 ml Balance 3705 ml General Appearance: No Apparent Distress, Thin HEENT: PERRL/EOMI Neck: Non Tender, Supple Respiratory: No Accessory Muscle Use, No Respiratory Distress, Crackles Cardiovascular: Regular Rate, Rhythm Capillary Refill: Less Than 3 Seconds Gastrointestinal: normal bowel sounds, non tender, soft, no organomegaly, no pulsatile mass Extremity: Non Tender, No Calf Tenderness, No Pedal Edema Neurologic/Psychiatric: Alert, Oriented x3 Skin: Warm/Dry Lymphatic: No Adenopathy Results Lab Laboratory Tests 08/29/17 19:44 08/30/17 04:50 Assessment/Plan Assessment/Plan Pneumonia with sepsis and respiratory distress -Zosyn -- d/c'd Recent Dx of Small Cell lung cancer with mets -Oncology is consulted -PT refusing treatment COPDAE -Solumedrol -SVNs Methamphetamine and marijuana use Tobacco dependance Pt is going to be discharged with hospice in [place] to be closer to family. I am going to sign off please call with any questions or concerns. Clinical Quality Measures DVT/VTE Risk/Contraindication: Risk Factor Score Per Nursin RFS Level Per Nursing on Admit: 4+=Very High KAREN DUQUE DO Aug 31, 2017 06:47
[2017-08-31 08:00] VITALS: BP 98/53
[2017-08-31] MEDS: methylPREDNISolone 40 MG/ML (Solu-MEDROL) VIAL IV SCH (08:34)
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
[2017-08-31 13:07] VITALS: BP 98/53
== END 2017-08-31 12:30 | disposition hospice, inpatient (51) | DRG 871 ==
LOC: EDUNIT# 19:39 → ER 19:40 → ICU 20:21 → 4TH 08-30 08:01
PROVIDERS: ADMIT Pediatrics; ATTEND Pediatrics
DX: A41.9 Sepsis, unspecified organism (principal); J18.9 Pneumonia, unspecified organism; J44.0 Chronic obstructive pulmonary disease with (acute) lower respiratory infection; J44.1 Chronic obstructive pulmonary disease with (acute) exacerbation; C34.91 Malignant neoplasm of unspecified part of right bronchus or lung; R06.03 Acute respiratory distress; R64 Cachexia; I10 Essential (primary) hypertension; Z51.5 Encounter for palliative care; C79.00 Secondary malignant neoplasm of unspecified kidney and renal pelvis; C78.89 Secondary malignant neoplasm of other digestive organs; C79.31 Secondary malignant neoplasm of brain; F17.210 Nicotine dependence, cigarettes, uncomplicated; G47.9 Sleep disorder, unspecified; E83.42 Hypomagnesemia; F15.10 Other stimulant abuse, uncomplicated; F12.10 Cannabis abuse, uncomplicated
CPT/HCPCS: 36415; 71010; 80048; 80053; 80306; 81000; 82805; 83605; 83735; 84100; 85007; 85025; 85027; 87040; 87070; 87081; 87205; 94640; 94664; 94760